=== PATIENT | female | born 1995 | race Caucasian/White ===

== ENCOUNTER 2017-03-30 10:21 | Emergency (ER) | payer OTHER ==
[2017-03-30 10:31] VITALS: RESP 16
[2017-03-30] MEDS ORDERED: DEXAMETHASONE 4 MG TAB PO ONE (11:31)
--- NOTE | 2017-03-30 11:35 | EDPHY ---
H & P Time Seen by Provider: 03/30/17 11:20 HPI/ROS: HPI: 22-year-old female presents to emergency department with chief concern dizziness, cough, chest tightness. Symptoms onset 10 days ago and include a worsening productive cough, wheezing, chest tightness, dizziness, increase in green phlegm from her nose and cough with some blood-tinged phlegm this morning , and a sore throat. No aggravating or alleviating factors. No fever, chills, shortness of breath, nausea, vomiting, diarrhea, rash. No recent travel. Up-to- date with immunizations. No history of asthma but uses a rescue inhaler for a significant history of GERD, has a history of pneumonia x2. Primary care provider in [place]. 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 No acute distress. Head: Normalocephalic. Atraumatic. EENT: PERRLA. EOMI. No pallor or injection. Anicteric. No nystagmus. No injection. TMs intact bilaterally with normal landmarks. Purulent green and yellow phlegm in nasal passages. Oropharynx with mild erythema. No exudates. Tonsils 2+ bilaterally, no exudates. Neck: Supple, nontender. No lymphadenopathy. Full range of motion. No meningismus. Respiratory: Breathing unlabored. Breath sounds with scattered expiratory wheezes, scattered rhonchi, significant rhonchi left lower lobe. CV: Chest nontender, atraumatic. Heart rate regular. No murmur, distal pulses 2+ bilaterally. Brisk cap refill all extremities. GI: Abdomen soft, nontender. Neuro: Alert. Oriented x 3. Speech clear. Nonfocal cranial nerves throughout. Sensation intact all extremities. Skin: Skin warm, dry, intact. No rashes, abrasions, or lacerations. Skin turgor normal. Extremities: Full range of motion in all 4 extremities. Strength 5+ all extremities. Constitutional: Initial Vital Signs Temperature (C) 36.8 C 03/30/17 10:28 Heart Rate 78 03/30/17 10:28 Respiratory Rate 16 03/30/17 10:28 Blood Pressure 108/69 03/30/17 10:28 O2 Sat (%) 98 03/30/17 10:28 O2 Delivery Mode Room Air Allergies/Adverse Reactions: No Known Allergies Allergy (Verified 03/30/17 10:32) Home Medications: Medication Instructions Recorded MIRENA 03/18/14 Azithromycin [Zithromax 250 mg 250 mg PO DAILY #6 tab 03/30/17 tab(RX)] Prozac 10 MG (*) 03/30/17 Medical Decision Making ED Course/Re-evaluation: 22-year-old female presents to emergency department with worsening cough, chest tightness, dizziness, history of pneumonia x2. Will cover her for atypicals as her symptoms have worsened, she has a history of pneumonia x2, she has significant rhonchi left lower lobe. Vitals are stable within 98% oxygen saturation, respiratory rate 16, heart rate 78, temp 36.8. She has been counseled regarding symptoms for which to return Differential Diagnosis: Differential diagnosis includes but is not limited to viral URI, sinusitis, bronchitis, pneumonia Departure - Departure Disposition: Home, Routine, Self-Care Clinical Impression: Bronchitis Sinusitis Qualifiers: Sinusitis location: maxillary Chronicity: acute Condition: Good Instructions: Sinusitis (ED), Acute Bronchitis (ED) Additional Instructions: Plan: Azithromycin antibiotic as prescribed--Take an [id number] probiotic and/ or eat yogurt while taking this antibiotic. You may use Mucinex/guaifenesin over the counter to help expectorate mucus with your cough. Use your Rhinocort (nasal steroid) 2 puffs in each nostril first thing in the morning while symptoms persist. You were given an oral steroid here in the emergency department-12 mg of Decadron Use your albuterol rescue inhaler every 4-6 hours as needed If her symptoms worsen including shortness of breath, chest pain, vomiting, follow up promptly with primary care return for recheck Follow up with primary care provider in [place] next week for recheck without fail Referrals: NONE *PRIMARY CARE P,. [Primary Care Provider] - As per Instructions Prescriptions: Azithromycin [Zithromax 250 mg tab(RX)] 250 mg PO DAILY #6 tab
[2017-03-30 11:47] VITALS: BP 117/78; PULSE 71; TEMP 98.4; O2SAT 94
== END 2017-03-30 11:47 | disposition home or self-care (01) ==
DX: J20.9 Acute bronchitis, unspecified (principal); J01.00 Acute maxillary sinusitis, unspecified